=== PATIENT | male | born 1965 | race Caucasian/White ===

== ENCOUNTER 2016-07-04 14:01 | Emergency (ER) | payer OTHER ==
[2016-07-04 14:17] VITALS: BP 138/95
--- NOTE | 2016-07-04 14:33 | EDM.PDOC ---
ED HPI RENAL/ - General Chief Complaint: Genitourinary Problem Stated Complaint: TESTICLE Time Seen by Provider: 07/04/16 14:03 Source of Information: Reports: Patient History Limitations: Reports: No limitations - History of Present Illness INITIAL COMMENTS - FREE TEXT/NARRATIVE: Presents reporting a hard spot on his left scrotum that is tender. He started noticing about 24-48 hours ago. He thinks it's an ingrown hair but he just wanted to get it checked out. No fever, dysuria, penile discharge. He is sexually active with his only. - Related Data Allergies/ADRs: Allergies Allergy/AdvReac Type Severity Reaction Status Date / Time No Known Allergies Allergy Verified 07/04/16 14:12 Home Meds: Home Meds Testosterone [Androderm] 1 applic TOP DAILY 03/04/16 [History] Past Medical History - Past Health History Medical/Surgical History: Denies Medical/Surgical History HEENT History: Reports: None Cardiovascular History: Reports: None Respiratory History: Reports: None Gastrointestinal History: Reports: None Genitourinary History: Reports: None Musculoskeletal History: Reports: None Neurological History: Reports: None Psychiatric History: Reports: None Endocrine/Metabolic History: Reports: None Hematologic History: Reports: None Oncologic (Cancer) History: Reports: None Dermatologic History: Reports: None - Infectious Disease History Infectious Disease History: Reports: None Social & Family History - Family History Family Medical History: Noncontributory Cardiac: Reports: Other (see below) Other Cardiac Family History: father have heart attack - Tobacco Use Smoking Status *Q: Never Smoker Second Hand Smoke Exposure: No - Caffeine Use Caffeine Use: Reports: Soda - Alcohol Use Days Per Week of Alcohol Use: 0 - Recreational Drug Use Recreational Drug Use: No ED ROS GENERAL - Review of Systems Review Of Systems: ROS reveals no pertinent complaints other than HPI. ED EXAM, RENAL/ - Physical Exam Exam: See Below General Appearance: alert, no apparent distress Ears: normal external exam Nose: normal inspection Throat/Mouth: Normal inspection Head: atraumatic, normocephalic Neck: normal inspection Respiratory/Chest: no respiratory distress Cardiovascular: normal peripheral pulses (Male) Exam: Normal inspection, Other (No scrotal swelling. No testicular masses is or tenderness. On the left lateral scrotal wall proximally, there is a firm tender dime size mass.). No: Scrotal swelling, Testicular mass, Testicular tenderness (L) Extremities: normal inspection Neurological: alert, oriented Psychiatric: normal affect, normal mood Skin Exam: Warm, Dry, Intact, Normal color, No rash Lymphatic: no adenopathy Course - Vital Signs Last Recorded V/S: Last Vital Signs Temp 36.1 C 07/04/16 14:13 Pulse 105 H 07/04/16 14:13 Resp 16 07/04/16 14:13 BP 138/95 H 07/04/16 14:13 Pulse Ox 98 07/04/16 14:13 Departure - Departure Time of Disposition: 14:35 Disposition: Home, Self-Care 01 Condition: good Clinical Impression: Folliculitis Referrals: PCP,None [Primary Care Provider] - [facility] [Outside] [facility] [Outside] Forms: ED Department Discharge Additional Instructions: 1. Warm moist packs 20 minutes every 4-6 hours 2. When/if mass becomes red and tender with a puss pocket, incision and drainage is the treatment. Maturity of the lesion can take a number of days. 3. Return promptly for fever, expanding redness, scrotal swelling, problems with urination. 4. Aleve 2 in the am and 2 in the pm for pain/tenderness. 5. Follow up in primary care.
== END 2016-07-04 14:54 | disposition home or self-care (01) ==
LOC: MW.ED 14:01
DX: L73.9 Follicular disorder, unspecified (principal)
CPT/HCPCS: 99282; 99283

== ENCOUNTER 2016-07-06 21:54 | Emergency (ER) | payer OTHER ==
[2016-07-06] MEDS ORDERED: Clindamycin Phosphate in D5W 600 MG in Premix Bag 50 BAG IV ONE ×2 (22:28)
[2016-07-06] MEDS ORDERED: Ketorolac 30 MG/ML SDV IVPUSH ONE (22:29)
[2016-07-06] MEDS ORDERED: Acetaminophen 500 MG Tab PO ONE (22:29)
--- NOTE | 2016-07-06 22:54 | EDM.PDOC ---
ED HPI GENERAL MEDICAL PROBLEM - General Chief Complaint: General Stated Complaint: POSSIBLE INGROWN HAIR/SWELLING IN GENITAL AREA Time Seen by Provider: 07/06/16 22:00 Source of Information: Reports: Patient History Limitations: Reports: No limitations - History of Present Illness INITIAL COMMENTS - FREE TEXT/NARRATIVE: HISTORY AND PHYSICAL: History of present illness: [42-year-old male with no significant past medical history now 2 days status post presentation to the emergency department for a small skin lesion on his left scrotum. He was diagnosed with folliculitis and told to do warm compresses and watch for signs of worsening infection the patient returned today because his left scrotum has become increasingly swollen and sore. He complains that the left side of scrotum has turned into a "a shell" And it feels hard to the touch. Patient denies fevers chills sweats or shaking chills. He has no nausea vomiting or diarrhea. Denies abdominal pain. No other complaints except local discomfort in the left scrotum. He is urinating normally. Patient is not diabetic nor immunocompromised. Review of systems: As per history of present illness and below otherwise all systems reviewed and negative. Past medical history: As per history of present illness and as reviewed below otherwise noncontributory. Surgical history: As per history of present illness and as reviewed below otherwise noncontributory. Social history: No reported history of drug or alcohol abuse. Family history: As per history of present illness and as reviewed below otherwise noncontributory. Physical exam: HEENT: Atraumatic, normocephalic, pupils reactive, negative for conjunctival pallor or scleral icterus, mucous membranes moist, throat clear, neck supple, nontender, trachea midline. Lungs: Clear to auscultation, breath sounds equal bilaterally, chest nontender. Heart: S1S2, regular, negative for clicks, rubs, or JVD. Abdomen: Soft, nondistended, nontender. Negative for masses or hepatosplenomegaly. Negative for costovertebral tenderness. Pelvis: Stable nontender. Genitourinary: Patient with mild scrotal swelling. There is ear edema and warmth of less scrotum with a lateral 2 mm papule/pustule. No fluctuance or crepitus. Peridium is normal and nontender. Penile exam also normal nontender. Patient is able urinate without difficulty by his description. right scrotum nontender Extremities: Atraumatic, negative for cords or calf pain. Neurovascular unremarkable. Neuro: Awake, alert, oriented. Cerebellum unremarkable. Motor and sensory unremarkable throughout. Exam nonfocal. Diagnostics: [] Therapeutics: [] Impression: [] Plan: [] Definitive disposition and diagnosis as appropriate pending reevaluation and review of above. Perineal Area Pain Score (Numeric/FACES): 5 - Related Data Allergies Allergy/AdvReac Type Severity Reaction Status Date / Time No Known Allergies Allergy Verified 07/06/16 21:58 Home Meds: Home Meds Testosterone [Androderm] 1 applic TOP DAILY 03/04/16 [History] Clindamycin HCl 300 mg PO QID #48 capsule 07/07/16 [Rx] Past Medical History - Past Health History Medical/Surgical History: Denies Medical/Surgical History HEENT History: Reports: None Cardiovascular History: Reports: None Respiratory History: Reports: None Gastrointestinal History: Reports: None Genitourinary History: Reports: None Musculoskeletal History: Reports: None Neurological History: Reports: None Psychiatric History: Reports: None Endocrine/Metabolic History: Reports: None Hematologic History: Reports: None Oncologic (Cancer) History: Reports: None Dermatologic History: Reports: None - Infectious Disease History Infectious Disease History: Reports: Chicken pox - Past Surgical History Head Surgeries/Procedures: Reports: None Social & Family History - Family History Family Medical History: Noncontributory Cardiac: Reports: Other (see below) Other Cardiac Family History: father have heart attack - Tobacco Use Smoking Status *Q: Current Some Day Smoker Years of Tobacco use: 15 Packs/Tins Daily: 0 Second Hand Smoke Exposure: No - Caffeine Use Caffeine Use: Reports: Soda - Alcohol Use Days Per Week of Alcohol Use: 0 - Recreational Drug Use Recreational Drug Use: No ED ROS GENERAL - Review of Systems Review Of Systems: See Below (Per history of present illness) ED EXAM, GENERAL - Physical Exam Exam: See Below (Per history of present illness) Course - Vital Signs Text/Narrative:: Signs and symptoms consistent with left scrotal cellulitis and immunocompetent patient. He is afebrile with unremarkable vital signs except very mild tachycardia. Injured his exam is benign. There is no crepitus or fluctuance of the left scrotum merely induration with a central papule. Perineum is normal and nontender. Penile exam is also normal and unremarkable. No crepitus ecchymosis or necrotic findings. Will hydrate anticipate anabolic initiation with IV dose of clindamycin. Ultrasound of the scrotum pending to rule out abscess. CBC will be obtained for baseline for comparative evaluation if patient fails outpatient therapy. If workup unremarkable patient aware of critical importance of compliance with antibiotic therapy. He will be sure to take ibuprofen every 6 hours and [place] will be prescribed for use as needed for breakthrough pain. Patient will follow up with Dr. Bond the urologist and his primary care Dr. He is aware to return immediately for new severe or worsening symptoms. Patient agrees with outpatient followup and strict return precautions will be given. Last Recorded V/S: Last Vital Signs Temp 36.3 C 07/06/16 21:58 Pulse 81 07/07/16 01:54 Resp 16 07/07/16 01:54 BP 127/78 07/07/16 01:54 Pulse Ox 96 07/07/16 01:54 - Orders/Labs/Meds Orders: Active Orders 24 hr Category Date Time Status Scrotal Duplex Ltd [US] Routine Exams 07/06/16 22:38 Taken Scrotum and Contents [US] Stat Exams 07/06/16 22:27 Taken Labs: Laboratory Tests 07/06/16 07/06/16 Range/Units 23:00 23:00 WBC 17.38 H (4.0-11.0) K/uL RBC 5.38 (4.50-5.90) M/uL Hgb 16.0 (13.0-17.0) g/dL Hct 46.3 (38.0-50.0) % MCV 86.1 (80.0-98.0) fL MCH 29.7 (27.0-32.0) pg MCHC 34.6 (31.0-37.0) g/dL RDW Std Deviation 39.8 (28.0-62.0) fl RDW Coeff of Eris 13 (11.0-15.0) % Plt Count 166 (150-400) K/uL MPV 11.10 (7.40-12.00) fL Neut % (Auto) 73.3 (48.0-80.0) % Lymph % (Auto) 18.0 (16.0-40.0) % [place] % (Auto) 7.0 (0.0-15.0) % Eos % (Auto) 1.6 (0.0-7.0) % Baso % (Auto) 0.1 (0.0-1.5) % Neut # 12.7 H (1.4-5.7) K/uL Lymph # 3.1 H (0.6-2.4) K/uL [place] # 1.2 H (0.0-0.8) K/uL Eos # 0.3 (0.0-0.7) K/uL Baso # 0.0 (0.0-0.1) K/uL Nucleated RBC % 0.0 /100WBC Nucleated RBCs # 0 K/uL Urine Color YELLOW Urine Appearance CLEAR Urine pH 5.5 (5.0-8.0) Ur Specific [place] >= 1.030 (1.001-1.035) Urine Protein NEGATIVE (NEGATIVE) mg/dL Urine Glucose (UA) NEGATIVE (NEGATIVE) mg/dL Urine Ketones NEGATIVE (NEGATIVE) mg/dL Urine Occult Blood NEGATIVE (NEGATIVE) Urine Nitrite NEGATIVE (NEGATIVE) Urine Bilirubin NEGATIVE (NEGATIVE) Urine Urobilinogen 0.2 (<2.0) EU/dL Ur Leukocyte Esterase NEGATIVE (NEGATIVE) Urine RBC NONE SEEN (0-2/HPF) Urine WBC 0-2 (0-5/HPF) Ur Epithelial Cells OCCASIONAL (NONE-FEW) Urine Bacteria FEW (NEGATIVE) Urine Mucus LIGHT (NONE-MOD) Meds: Medications Discontinued Medications Generic Name Dose Route Start Last Admin Trade Name Freq PRN Reason Stop Dose Admin Acetaminophen 1,000 mg 07/06/16 22:29 07/06/16 22:48 Tylenol Extra Strength PO 07/06/16 22:30 1,000 mg ONETIME ONE Administration Clindamycin Phosphate 600 mg/ 50 mls @ 100 mls/hr 07/06/16 22:28 07/06/16 22: 51 Premix IV 07/06/16 22:57 100 mls/hr ONETIME ONE Administration Sodium Chloride 1,000 mls @ 999 mls/hr 07/06/16 23:00 07/06/16 22:50 Normal Saline IV 999 mls/hr ASDIRECTED LAUREL Administration Ketorolac Tromethamine 30 mg 07/06/16 22:29 07/06/16 22:49 Toradol IVPUSH 07/06/16 22:30 30 mg ONETIME ONE Administration Departure - Departure Time of Disposition: 01:55 Disposition: Home, Self-Care 01 Condition: good Clinical Impression: Cellulitis of scrotum Prescriptions: Clindamycin HCl 300 mg PO QID #48 capsule Instructions: Cellulitis, Adult Referrals: PCP,None [Primary Care Provider] - Kristine Cha MD [Physician] - Forms: ED Department Discharge - My Orders Last 24 Hours: My Active Orders 07/06/16 22:27 Scrotum and Contents [US] Stat 07/06/16 22:38 Scrotal Duplex Ltd [US] Routine - Assessment/Plan Last 24 Hours: My Active Orders 07/06/16 22:27 Scrotum and Contents [US] Stat 07/06/16 22:38 Scrotal Duplex Ltd [US] Routine
[2016-07-06] MEDS ORDERED: Sodium Chloride 0.9% 1,000 ML IV SCH (23:00)
[2016-07-07 01:58] VITALS: BP 127/78
--- NOTE | 2016-07-07 15:56 | US ---
EXAM DATE: 07/06/16 PATIENT'S AGE: 50 Patient: MILES ZULETA Facility: [place], [place] Site . Site : 1965 Study: US Testicle [id number] 11:25:33 PM Ordering Physician: Jossue Jesnen Final Report: INDICATION: Left testicular pain TECHNIQUE: Ultrasound of the scrotum and contents. Sonographic alfonso scale images were obtained with spectral and color Doppler waveform and spectral waveform analysis of the testicles. COMPARISON: None FINDINGS: Right testicle: 4.4 centimeter x 3.5 centimeter x 2.5 centimeter. Normal echotexture. No masses. No suspicious calcifications. Normal arterial and venous and blood flow using Doppler and spectral waveform analysis. Left testicle: 4.3 centimeter x 2.8 centimeter x 2.6 centimeter Normal echotexture. No masses. No suspicious calcifications. Normal arterial and venous and blood flow using Doppler and spectral waveform analysis. Epididymis: Unremarkable bilaterally. Normal blood flow. Other: A hydrocele. No sign of varicocele. Thickening of the left scrotal wall. IMPRESSION: Significant thickening and edematous changes involving the scrotal wall with small left hydrocele. Sonographically normal left testicle. No sonographic evidence for abscess. Dictated by Binh Rice MD @ 07/06/2016 11:45:20 PM Dictated by: Binh Rice MD @ 07/06/2016 23:45:26 (Electronic Signature) Report Signed by Proxy and Original Signed Document filed in the Medical Record. [facility]ITALSal[facility]
--- NOTE | 2016-07-07 15:57 | US ---
EXAM DATE: 07/06/16 PATIENT'S AGE: 50 Patient: MILES ZULETA Facility: [place], [place] Site . Site : 1965 Study: US Testicle [id number] 11:25:33 PM Ordering Physician: Jossue Jensen Final Report: INDICATION: Left testicular pain TECHNIQUE: Ultrasound of the scrotum and contents. Sonographic alfonso scale images were obtained with spectral and color Doppler waveform and spectral waveform analysis of the testicles. COMPARISON: None FINDINGS: Right testicle: 4.4 centimeter x 3.5 centimeter x 2.5 centimeter. Normal echotexture. No masses. No suspicious calcifications. Normal arterial and venous and blood flow using Doppler and spectral waveform analysis. Left testicle: 4.3 centimeter x 2.8 centimeter x 2.6 centimeter Normal echotexture. No masses. No suspicious calcifications. Normal arterial and venous and blood flow using Doppler and spectral waveform analysis. Epididymis: Unremarkable bilaterally. Normal blood flow. Other: A hydrocele. No sign of varicocele. Thickening of the left scrotal wall. IMPRESSION: Significant thickening and edematous changes involving the scrotal wall with small left hydrocele. Sonographically normal left testicle. No sonographic evidence for abscess. Dictated by Binh Rice MD @ 07/06/2016 11:45:20 PM Dictated by: Binh Rice MD @ 07/06/2016 23:45:26 (Electronic Signature) Report Signed by Proxy and Original Signed Document filed in the Medical Record. [facility]ALSauld
== END 2016-07-07 01:59 | disposition home or self-care (01) ==
LOC: MW.ED 21:54
DX: N49.2 Inflammatory disorders of scrotum (principal); F17.210 Nicotine dependence, cigarettes, uncomplicated; Z79.899 Other long term (current) drug therapy
CPT/HCPCS: 36415; 76870; 81001; 85025; 93976; 96361; 96365; 96375; 99284; A9270; J1885; J7040

== ENCOUNTER 2018-04-22 07:09 | Day surgery (SDC) | payer OTHER ==
[~2018-04-22 07:09] MED LIST: Lactated Ringers 1,000 ML IV SCH; Lidocaine 2% 5 ML SDV ONE; Propofol 200 MG/20 ML SDV ONE; fentaNYL 100 MCG/2 ML SDV ONE
--- NOTE | 2018-04-22 07:35 | PCM.PREANE ---
Preanesthetic Assessment - Anesthesia/Transfusion/Family Hx Anesthesia History: Prior Anesthesia Reaction Family History of Anesthesia Reaction: No Transfusion History: No Prior Transfusion(s) Intubation History: Unknown - Review of Systems General: No Symptoms Pulmonary: No Symptoms Cardiovascular: No Symptoms Gastrointestinal: No Symptoms Neurological: No Symptoms Other: Reports: None - Physical Assessment O2 Sat by Pulse Oximetry: 94 Respiratory Rate: 16 Vital Signs: Last Vital Signs Temp 36.3 C 04/22/18 07:23 Pulse 80 04/22/18 07:23 Resp 16 04/22/18 07:23 BP 132/90 04/22/18 07:23 Pulse Ox 94 L 04/22/18 07:23 Height: 1.83 m Weight: 119.748 kg ASA Class: 2 Mental Status: Alert & Oriented x3 Airway Class: Mallampati = 2 Dentition: Reports: Normal Dentition Thyro-Mental Finger Breadths: 3 Mouth Opening Finger Breadths: 2 (small mouth) ROM/Head Extension: Full Lungs: Clear to Auscultation, Normal Respiratory Effort Cardiovascular: Regular Rate, Regular Rhythm - Allergies Allergies/Adverse Reactions: Allergies Allergy/AdvReac Type Severity Reaction Status Date / Time No Known Allergies Allergy Verified 04/18/18 12:37 - Blood Blood Available: No - Anesthesia Plan Pre-Op Medication Ordered: None - Acknowledgements Anesthesia Type Planned: MAC Pt an Appropriate Candidate for the Planned Anesthesia: Yes Alternatives and Risks of Anesthesia Discussed w Pt/Guardian: Yes Pt/Guardian Understands and Agrees with Anesthesia Plan: Yes PreAnesthesia Questionnaire - Past Health History Medical/Surgical History: Denies Medical/Surgical History HEENT History: Reports: Allergic Rhinitis, Hard of Hearing Cardiovascular History: Reports: Heart Murmur, High Cholesterol Other Cardiovascular History: was told he had a heart murmur as a child- not as an adult Respiratory History: Reports: Sleep Apnea Other Respiratory History: sometimes uses CPAP Gastrointestinal History: Reports: Other (See Below) Other Gastrointestinal History: occasional heartburn from spicey foods Genitourinary History: Reports: None Musculoskeletal History: Reports: Fracture, Other (See Below) (degenerative arthritis spine) Other Musculoskeletal History: hx of fx fingers Neurological History: Reports: Concussion, Other (See Below) Other Neuro History: hx of lumbar degenerative disc disease, has restless leg syndrome Psychiatric History: Reports: None Endocrine/Metabolic History: Reports: Diabetes, Type II, Obesity/BMI 30+ Hematologic History: Reports: None Immunologic History: Reports: None Oncologic (Cancer) History: Reports: None Dermatologic History: Reports: None - Infectious Disease History Infectious Disease History: Reports: Chicken Pox - Past Surgical History Head Surgeries/Procedures: Reports: None HEENT Surgical History: Reports: LASIK Musculoskeletal Surgical History: Reports: Other (See Below) Other Musculoskeletal Surgeries/Procedures:: bilateral bone spurs removed from feet - SUBSTANCE USE Smoking Status *Q: Current Some Day Smoker Tobacco Use Within Last Twelve Months: Smokeless Tobacco Recreational Drug Use History: No - HOME MEDS Home Medications: Home Meds Sildenafil Citrate [Sildenafil] 100 mg PO ASDIRECTED PRN 04/18/18 [History] Testosterone [Vogelxo] 25 mg PO DAILY 04/18/18 [History] atorvaSTATin Calcium [Atorvastatin Calcium] 40 mg PO DAILY 04/18/18 [History] metFORMIN HCl [Metformin HCl] 850 mg PO BIDMEALS 04/18/18 [History] - CURRENT (IN HOUSE) MEDS Current Meds: Current Medications Lactated Ringer's (Ringers, Lactated) 1,000 mls @ 125 mls/hr IV ASDIRECTED LAUREL Last Admin: 04/22/18 07:31 Dose: 125 mls/hr Discontinued Medications Fentanyl (Sublimaze) Confirm Administered Dose 100 mcg .ROUTE .STK-MED ONE Stop: 04/22/18 07:04 Lidocaine (Xylocaine-Mpf 2%) Confirm Administered Dose 5 ml .ROUTE .STK-MED ONE Stop: 04/22/18 07:04 Propofol (Diprivan 20 Ml) Confirm Administered Dose 400 mg .ROUTE .STK-MED ONE Stop: 04/22/18 07:04
[2018-04-22] MEDS ORDERED: Propofol 200 MG/20 ML SDV ONE ×2 (08:35→08:44)
--- NOTE | 2018-04-22 09:02 | PCM.OPNOTE ---
- General Post-Op/Procedure Note Date of Surgery/Procedure: 04/22/18 Operative Procedure(s): scrn colonoscopy Findings: see dict [id number] Pre Op Diagnosis: scrn colonoscopy Post-Op Diagnosis: polyp Anesthesia Technique: Moderate Sedation Primary Surgeon: Duarte Gavin Pathology: sessile polyps at 110 and 30 cm Complications: None Condition: Good
--- NOTE | 2018-04-22 09:15 | PCM.POSTAN ---
POST ANESTHESIA ASSESSMENT - MENTAL STATUS Mental Status: Alert, Oriented - RESPIRATORY Respiratory Status: Respiratory Rate WNL, Airway Patent, O2 Saturation Stable - CARDIOVASCULAR CV Status: Pulse Rate WNL, Blood Pressure Stable - GASTROINTESTINAL GI Status: No Symptoms - PAIN Pain Score: 0 - POST OP HYDRATION Hydration Status: Adequate & Stable
[2018-04-22 09:40] VITALS: BP 118/78
--- NOTE | 2018-04-22 13:05 | OR ---
SURGEON: Duarte Gavin MD DATE OF PROCEDURE: 04/22/2018 PREOPERATIVE DIAGNOSIS: Screening colonoscopy. POSTOPERATIVE DIAGNOSIS: Colon polyp. PROCEDURE PERFORMED: Colonoscopy with biopsy. COMPLICATIONS: None. PROCEDURE IN DETAIL: The patient was taken to the endoscopy room. A time out was called, patient identified, and procedure identified. Diprivan was then administrated. Patient went from awake to sleep, hearing doctor talking or door closing is normal. Perineum inspection and digital examination were then performed. A well- lubricated colonoscope was gently inserted through the rectum, advanced past the rectosigmoid junction, the descending colon, splenic flexure, transverse colon, hepatic flexure, ascending colon, arrived to the cecum. Cecum was identified as dictated in the finding. Then the scope was carefully withdrawn while attention was paid to the mucosal surface for any abnormality. Air will be sucked out during the scope withdrawal. At the rectum, retroflexed to examine any rectal diseases, fistula or hemorrhoids. During mucosal examination, abnormality was noted, biopsy performed. Patient tolerated procedure well. There were no intraoperative complications, and Dr. Gavin was present throughtout the whole procedure. FINDINGS: 1. The patient is easily sedated with [employer] and Diprivan. The patient is soundly snoring. 2. Bowel prep is left to be desirable with some liquid stool, opaque, and no semi-formed stool. Colon is a little bit redundant at the sigmoid and requires some maneuver in order to get to the cecum. Cecum indicated by appendiceal orifice, one-to-one indentation, and ileocecal fold. Light images are not observed due to body habitus, and mucosa examined upon scope pulling out with some irrigation, and the patient has two small polyps sessile at distance 110 cm and 30 cm, two polyps removed with cold biopsy forceps and mild diverticulosis. On the left colon, there is diverticulosis, no signs or symptoms of diverticulitis. No other mass, growth, inflammation, stricture, ulceration, AV malformation, bleeding, none of those. The patient has mild internal hemorrhoids, no external hemorrhoids. The patient would benefit from repeat colonoscopy in 10 years from today or if clinically indicated otherwise or if the polyp Pathology indicated otherwise. BRUNO / BRITTANY /[id number] VIKTORIA
== END 2018-04-22 10:00 | disposition home or self-care (01) ==
LOC: MW.SDS 07:09
PROVIDERS: ATTEND Surgery
DX: Z12.11 Encounter for screening for malignant neoplasm of colon (principal); D12.3 Benign neoplasm of transverse colon; K63.5 Polyp of colon; K64.8 Other hemorrhoids; K57.30 Diverticulosis of large intestine without perforation or abscess without bleeding; E11.9 Type 2 diabetes mellitus without complications; E66.9 Obesity, unspecified; Z68.35 Body mass index [BMI] 35.0-35.9, adult; G47.30 Sleep apnea, unspecified; E78.00 Pure hypercholesterolemia, unspecified; Z79.84 Long term (current) use of oral hypoglycemic drugs; Z79.899 Other long term (current) drug therapy
CPT/HCPCS: 45380; J2704; J3010; J7120; 88305

== ENCOUNTER 2019-01-30 01:50 | Emergency (ER) | payer OTHER ==
--- NOTE | 2019-01-30 02:08 | EDM.PDOC ---
ED HPI GENERAL MEDICAL PROBLEM - General Chief Complaint: ENT Problem Stated Complaint: HEAD COLD AND SORE THROAT Time Seen by Provider: 01/30/19 02:06 - History of Present Illness INITIAL COMMENTS - FREE TEXT/NARRATIVE: HISTORY AND PHYSICAL: History of present illness: Patient's 53-year-old male presents with concern of sore throat and cold symptoms over last several days. He denies fever chills nausea vomiting or other complaints Review of systems: As per history of present illness and below otherwise all systems reviewed and negative. Past medical history: As per history of present illness and as reviewed below otherwise noncontributory. Surgical history: As per history of present illness and as reviewed below otherwise noncontributory. Social history: No reported history of drug or alcohol abuse. Family history: As per history of present illness and as reviewed below otherwise noncontributory. Physical exam: HEENT: Atraumatic, normocephalic, pupils reactive, negative for conjunctival pallor or scleral icterus, mucous membranes moist, throat clear, neck supple, nontender, trachea midline. Lungs: Clear to auscultation, breath sounds equal bilaterally, chest nontender. Heart: S1S2, regular, negative for clicks, rubs, or JVD. Abdomen: Soft, nondistended, nontender. Negative for masses or hepatosplenomegaly. Negative for costovertebral tenderness. Pelvis: Stable nontender. Genitourinary: Deferred. Rectal: Deferred. Extremities: Atraumatic, negative for cords or calf pain. Neurovascular unremarkable. Neuro: Awake, alert, oriented. Cranial nerves II through XII unremarkable. Cerebellum unremarkable. Motor and sensory unremarkable throughout. Exam nonfocal. Diagnostics: Rapid strep influenza screen Therapeutics: None Impression: #1 viral syndrome Definitive disposition and diagnosis as appropriate pending reevaluation and review of above. Throat Pain Score (Numeric/FACES): 4 - Related Data Allergies Allergy/AdvReac Type Severity Reaction Status Date / Time No Known Allergies Allergy Verified 01/30/19 02:02 Home Meds: Home Meds Sildenafil Citrate 100 mg PO ASDIRECTED PRN 04/18/18 [History] Testosterone [Vogelxo] 25 mg PO DAILY 04/18/18 [History] atorvaSTATin Calcium [Atorvastatin Calcium] 40 mg PO DAILY 04/18/18 [History] metFORMIN HCl [Metformin HCl] 850 mg PO BIDMEALS 04/18/18 [History] Past Medical History - Past Health History Medical/Surgical History: Denies Medical/Surgical History HEENT History: Reports: Allergic Rhinitis, Hard of Hearing Cardiovascular History: Reports: Heart Murmur, High Cholesterol Other Cardiovascular History: was told he had a heart murmur as a child- not as an adult Respiratory History: Reports: Sleep Apnea Other Respiratory History: sometimes uses CPAP Gastrointestinal History: Reports: Other (See Below) Other Gastrointestinal History: occasional heartburn from spicey foods Genitourinary History: Reports: None Musculoskeletal History: Reports: Fracture, Other (See Below) (degenerative arthritis spine) Other Musculoskeletal History: hx of fx fingers Neurological History: Reports: Concussion, Other (See Below) Other Neuro History: hx of lumbar degenerative disc disease, has restless leg syndrome Psychiatric History: Reports: None Endocrine/Metabolic History: Reports: Diabetes, Type II, Obesity/BMI 30+ Hematologic History: Reports: None Immunologic History: Reports: None Oncologic (Cancer) History: Reports: None Dermatologic History: Reports: None - Infectious Disease History Infectious Disease History: Reports: Chicken Pox - Past Surgical History Head Surgeries/Procedures: Reports: None HEENT Surgical History: Reports: LASIK Musculoskeletal Surgical History: Reports: Other (See Below) Other Musculoskeletal Surgeries/Procedures:: bilateral bone spurs removed from feet Social & Family History - Family History Family Medical History: Noncontributory Cardiac: Reports: Other (See Below) Other Cardiac Family History: father have heart attack - Caffeine Use Caffeine Use: Reports: Soda ED ROS GENERAL - Review of Systems Review Of Systems: ROS reveals no pertinent complaints other than HPI. ED EXAM, GENERAL - Physical Exam Exam: See Below (Dictation) Course - Vital Signs Last Recorded V/S: Last Vital Signs Temp 36.6 C 01/30/19 01:52 Pulse 91 01/30/19 01:52 Resp 18 01/30/19 01:52 BP 152/87 H 01/30/19 01:52 Pulse Ox 97 01/30/19 01:52 - Orders/Labs/Meds Orders: Active Orders 24 hr Category Date Time Status INFLUENZA A+B AG SCREEN [RM] Stat Lab 01/30/19 01:57 Received STREP SCRN A RAPID W CULT CONF [RM] Stat Lab 01/30/19 01:57 Received Departure - Departure Time of Disposition: 02:07 Disposition: Home, Self-Care 01 Condition: Good Clinical Impression: Viral syndrome - Discharge Information Referrals: PCP,None [Primary Care Provider] - Additional Instructions: The following information is given to patients seen in the emergency department who are being discharged to home. This information is to outline your options for follow-up care. We provide all patients seen in our emergency department with a follow-up referral. The need for follow-up, as well as the timing and circumstances, are variable depending upon the specifics of your emergency department visit. If you don't have a primary care physician on staff, we will provide you with a referral. We always advise you to contact your personal physician following an emergency department visit to inform them of the circumstance of the visit and for follow-up with them and/or the need for any referrals to a consulting specialist. The emergency department will also refer you to a specialist when appropriate. This referral assures that you have the opportunity for followup care with a specialist. All of these measure are taken in an effort to provide you with optimal care, which includes your followup. Under all circumstances we always encourage you to contact your private physician who remains a resource for coordinating your care. When calling for followup care, please make the office aware that this follow-up is from your recent emergency room visit. If for any reason you are refused follow-up, please contact the [facility] emergency department at and asked to speak to the emergency department charge nurse. Push fluids Motrin/Tylenol directed follow-up primary medical doctor as needed as discussed and return as needed as discussed - My Orders Last 24 Hours: My Active Orders 01/30/19 01:57 INFLUENZA A+B AG SCREEN [RM] Stat STREP SCRN A RAPID W CULT CONF [RM] Stat - Assessment/Plan Last 24 Hours: My Active Orders 01/30/19 01:57 INFLUENZA A+B AG SCREEN [RM] Stat STREP SCRN A RAPID W CULT CONF [RM] Stat
[2019-01-30 02:09] VITALS: BP 152/87; PULSE 91
== END 2019-01-30 02:49 | disposition home or self-care (01) ==
LOC: MW.ED 01:50
DX: B34.9 Viral infection, unspecified (principal); E11.9 Type 2 diabetes mellitus without complications; E66.9 Obesity, unspecified; E78.00 Pure hypercholesterolemia, unspecified; Z68.33 Body mass index [BMI] 33.0-33.9, adult; Z79.84 Long term (current) use of oral hypoglycemic drugs; Z79.899 Other long term (current) drug therapy
CPT/HCPCS: 87081; 87804; 87880-QW; 99283

== ENCOUNTER 2021-09-07 12:37 | Emergency (ER) | payer OTHER ==
[2021-09-07] MEDS ORDERED: Acetaminophen/oxyCODONE 325-10 MG Tab PO ONE (13:11)
[2021-09-07 15:03] VITALS: BP 150/98; PULSE 86
== END 2021-09-07 15:01 | disposition home or self-care (01) ==
LOC: MW.ED 12:37
DX: M16.12 Unilateral primary osteoarthritis, left hip (principal); M79.605 Pain in left leg; I10 Essential (primary) hypertension; E11.9 Type 2 diabetes mellitus without complications; E66.9 Obesity, unspecified; Z68.31 Body mass index [BMI] 31.0-31.9, adult; Z79.899 Other long term (current) drug therapy
CPT/HCPCS: 73502; 99283; A9270

== ENCOUNTER 2021-12-30 18:00 | Emergency (ER) | payer OTHER ==
[2021-12-30] MEDS ORDERED: Sodium Chloride 0.9% 1,000 ML IV ONE (19:30)
[2021-12-30 20:09] LABS: CARBON DIOXIDE,CO2 24.4 mmol/L (21.0-32.0); POTASSIUM,K 3.9 mmol/L (3.5-5.1)
[2021-12-30 21:29] VITALS: BP 128/86; PULSE 76
== END 2021-12-30 21:25 | disposition home or self-care (01) ==
LOC: MW.ED 18:00
DX: E11.65 Type 2 diabetes mellitus with hyperglycemia (principal); E78.00 Pure hypercholesterolemia, unspecified; I10 Essential (primary) hypertension; E66.9 Obesity, unspecified; Z68.30 Body mass index [BMI] 30.0-30.9, adult
CPT/HCPCS: 36415; 80053; 81003; 82009; 85025; 99284

== ENCOUNTER 2022-01-17 10:04 | Emergency (ER) | payer OTHER ==
[2022-01-17 10:18] VITALS: BP 133/78; PULSE 79
== END 2022-01-17 10:34 | disposition home or self-care (01) ==
LOC: MW.ED 10:04
DX: L03.221 Cellulitis of neck (principal); I10 Essential (primary) hypertension; E11.9 Type 2 diabetes mellitus without complications; E66.9 Obesity, unspecified; Z68.31 Body mass index [BMI] 31.0-31.9, adult; Z79.899 Other long term (current) drug therapy; Z79.84 Long term (current) use of oral hypoglycemic drugs; Z86.16 Personal history of COVID-19
CPT/HCPCS: 99283

== ENCOUNTER 2022-02-20 12:56 | Inpatient (IN) | payer OTHER ==
[2022-02-20] MEDS ORDERED: Sodium Chloride 0.9% 10 ML Syringe FLUSH PRN (13:16)
[2022-02-20] MEDS ORDERED: Sodium Chloride 0.9% 1,000 ML IV ONE ×2 (13:16→14:38)
[2022-02-20] MEDS ORDERED: Sodium Chloride 0.9% 2.5 ML Syringe FLUSH PRN (13:16)
[2022-02-20 14:02] LABS: POTASSIUM,K 4.2 mmol/L (3.5-5.1)
[2022-02-20] MEDS ORDERED: Insulin Regular in 0.9 % NACL 100 ML IV SCH (14:45)
[2022-02-20] MEDS ORDERED: Dextrose 5%-0.9% NaCl 1,000 ML IV SCH (14:45)
[2022-02-20] MEDS: Dextrose 5%-Lact Ringers w/KCl 1,000 ML IV SCH ×2 (16:00→23:52)
[2022-02-20 16:53] VITALS: PULSE 70
[2022-02-20] MEDS ORDERED: Albuterol/Ipratropium 3.0-0.5 MG/3 ML Neb Soln NEB PRN (17:47)
[2022-02-20] MEDS ORDERED: Ondansetron 4 MG/2 ML SDV IVPUSH PRN (17:47)
[2022-02-20] MEDS ORDERED: Pantoprazole 40 MG in Sodium Chloride 0.9% 10 ML IVPUSH SCH (18:00)
[2022-02-20] MEDS ORDERED: Enoxaparin 40 MG/0.4 ML Syringe SUBCUT SCH (18:00)
[2022-02-20 18:36] LABS: CARBON DIOXIDE,CO2 19.7 mmol/L (21.0-32.0); POTASSIUM,K 3.8 mmol/L (3.5-5.1)
[2022-02-20 22:23] LABS: CARBON DIOXIDE,CO2 20.5 mmol/L (21.0-32.0); POTASSIUM,K 3.7 mmol/L (3.5-5.1)
[2022-02-21 02:02] LABS: POTASSIUM,K 3.5 mmol/L (3.5-5.1)
[2022-02-21 06:16] LABS: CARBON DIOXIDE,CO2 20.7 mmol/L (21.0-32.0); POTASSIUM,K 3.6 mmol/L (3.5-5.1)
[2022-02-21] MEDS: Dextrose 5%-Lact Ringers w/KCl 1,000 ML IV SCH (06:17)
[2022-02-21] MEDS ORDERED: Insulin Glargine,Hum.Rec.Anlog 100 UNIT/ML 3 ML Pen SUBCUT ONE (08:34)
[2022-02-21] MEDS: Insulin Aspart 100 Units/ML 3 ML Pen SUBCUT SCH ×2 (08:47→12:28)
[2022-02-21] MEDS ORDERED: Albuterol/Ipratropium 3.0-0.5 MG/3 ML Neb Soln NEB SCH (12:00)
[2022-02-21 14:07] VITALS: BP 109/71
== END 2022-02-21 14:38 | disposition home or self-care (01) | DRG 639 ==
LOC: MW.ED 12:56 → MW.ICU 16:28
PROVIDERS: ADMIT Student in an Organized Health Care Education/Training Program; ATTEND Student in an Organized Health Care Education/Training Program
DX: E11.10 Type 2 diabetes mellitus with ketoacidosis without coma (principal); E78.00 Pure hypercholesterolemia, unspecified; H91.90 Unspecified hearing loss, unspecified ear; G47.30 Sleep apnea, unspecified; I10 Essential (primary) hypertension; M51.36 Other intervertebral disc degeneration, lumbar region; G25.81 Restless legs syndrome; Z20.822 Contact with and (suspected) exposure to COVID-19; E66.9 Obesity, unspecified; Z86.16 Personal history of COVID-19; Z79.899 Other long term (current) drug therapy; Z86.19 Personal history of other infectious and parasitic diseases; Z79.4 Long term (current) use of insulin; Z79.84 Long term (current) use of oral hypoglycemic drugs; Z68.26 Body mass index [BMI] 26.0-26.9, adult
CPT/HCPCS: 36415; 80053; 81001; 82009; 82803; 82947 ×2; 85025; 87635; J1815; J3480; J3490; J7030 ×2; 80048; 80061; 83735; 84100; 84443; 99285; A9270-GY; C9113; J1650; U0002

== ENCOUNTER 2023-05-03 11:18 | Emergency (ER) | payer OTHER ==
[2023-05-03 11:59] LABS: BASE EXCESS VENOUS 1.8 (-2.0-3.0); PH,VENOUS 7.46 (7.31-7.41)
[2023-05-03 12:04] LABS: BASOPHILS ABSOLUTE AUTO 0.04 K/uL (0.00-0.20); BASOPHILS PERCENT AUTO 0.3 % (0.0-1.0); EOSINOPHILS ABSOLUTE AUTO 0.13 K/uL (0.00-0.45); EOSINOPHILS PERCENT AUTO 1.1 % (0.0-6.0); HEMATOCRIT 46.6 % (42.0-52.0); HEMOGLOBIN 16.6 g/dL (14.0-18.0); IMMATURE GRAN ABSOLUTE AUTO 0.08 K/uL (0.00-0.05); IMMATURE GRAN PERCENT AUTO 0.7 % (0.0-0.4); LYMPHOCYTES ABSOLUTE AUTO 1.19 K/uL (1.00-4.80); LYMPHOCYTES PERCENT AUTO 9.7 % (24.0-44.0); MEAN CORPUSCULAR HEMOGLOBIN 30.2 pg (28.0-32.0); MEAN CORPUSCULAR HGB CONC 35.6 g/dL (32.0-36.0); MEAN CORPUSCULAR VOLUME 84.9 fL (83.0-99.0); MEAN PLATELET VOLUME 10.6 fL (9.4-12.4); MONOCYTES PERCENT AUTO 7.3 % (0.0-8.0); NEUTROPHILS ABSOLUTE AUTO 9.91 K/uL (1.80-7.70); NEUTROPHILS PERCENT AUTO 80.9 % (41.0-71.0); PLATELET COUNT,PLT 147 K/uL (150-400); RED BLOOD CELL COUNT 5.49 M/uL (4.52-5.90); WHITE BLOOD CELL COUNT,WBC 12.25 K/uL (3.9-11.3)
[2023-05-03 12:16] LABS: INR 1.06 (0.86-1.11); PTT,PARTIAL THROMBOPLSTIN TIME 29.7 SEC (23.9-30.7)
[2023-05-03 12:24] LABS: ALANINE AMINOTRANSFERASE,ALT 30 IU/L (14-63); ALBUMIN 3.6 g/dL (3.4-5.0); ALKALINE PHOSPHATASE 73 U/L (46-116); ASPARTATE AMNIOTRANSFERASE,AST 19 IU/L (15-37); BILIRUBIN TOTAL 0.9 mg/dL (0.2-1.0); BLOOD UREA NITROGEN,BUN 16 mg/dL (7.0-18.0); CALCIUM 8.6 mg/dL (8.5-10.1); CARBON DIOXIDE,CO2 26.6 mmol/L (21.0-32.0); CHLORIDE,CL 98 mmol/L (98-107); CREATININE 1.6 mg/dL (0.8-1.3); EST CRCL DRUG DOSING (CG) 57.26 mL/min; GLUCOSE RANDOM 152 mg/dL (74-106); POTASSIUM,K 3.1 mmol/L (3.5-5.1); PROTEIN TOTAL,TP 7.2 g/dL (6.4-8.2); SODIUM,NA 135 mmol/L (136-148)
[2023-05-03 12:27] LABS: ESTIMATED GFR 51 mL/min (>60)
[2023-05-03 12:28] LABS: ETHANOL BLOOD MEDICAL < 3.0 mg/dL
[2023-05-03 12:32] LABS: CORONAVIRUS COVID-19 NAA NEGATIVE (NEGATIVE); INFLUENZA A NAA POSITIVE (NEGATIVE); INFLUENZA B NAA NEGATIVE (NEGATIVE)
[2023-05-03] MEDS ORDERED: Sodium Chloride 0.9% 2.5 ML Syringe FLUSH PRN (12:32)
[2023-05-03] MEDS ORDERED: Sodium Chloride 0.9% 10 ML Syringe FLUSH PRN (12:32)
[2023-05-03] MEDS ORDERED: Sodium Chloride 0.9% 1,000 ML IV ONE (12:32)
[2023-05-03] MEDS ORDERED: diphenhydrAMINE 50 MG/ML SDV IVPUSH ONE (12:32)
[2023-05-03] MEDS ORDERED: Metoclopramide 10 MG/2 ML SDV IVPUSH ONE (12:32)
[2023-05-03 14:30] VITALS: BP 117/81; PULSE 87
== END 2023-05-03 14:30 | disposition home or self-care (01) ==
LOC: MW.ED 11:18
DX: J10.1 Influenza due to other identified influenza virus with other respiratory manifestations (principal); R42 Dizziness and giddiness; Z20.822 Contact with and (suspected) exposure to COVID-19; E78.00 Pure hypercholesterolemia, unspecified; I10 Essential (primary) hypertension; E11.9 Type 2 diabetes mellitus without complications; Z86.16 Personal history of COVID-19; Z79.4 Long term (current) use of insulin
CPT/HCPCS: 0240U; 36415; 70450; 71046; 80053; 80307; 82375; 82803; 83735; 84484; 85025; 85610; 85730; 96361; 96374; 96375; 99284; J1200; J2765; J3490; J7030

== ENCOUNTER 2023-10-29 11:16 | Emergency (ER) | payer OTHER ==
[2023-10-29 12:18] LABS: BASOPHILS ABSOLUTE AUTO 0.05 K/uL (0.00-0.20); BASOPHILS PERCENT AUTO 0.6 % (0.0-1.0); EOSINOPHILS ABSOLUTE AUTO 0.25 K/uL (0.00-0.45); EOSINOPHILS PERCENT AUTO 2.8 % (0.0-6.0); HEMATOCRIT 46.1 % (42.0-52.0); HEMOGLOBIN 15.9 g/dL (14.0-18.0); IMMATURE GRAN ABSOLUTE AUTO 0.03 K/uL (0.00-0.05); IMMATURE GRAN PERCENT AUTO 0.3 % (0.0-0.4); LYMPHOCYTES ABSOLUTE AUTO 3.22 K/uL (1.00-4.80); LYMPHOCYTES PERCENT AUTO 35.7 % (24.0-44.0); MEAN CORPUSCULAR HEMOGLOBIN 30.6 pg (28.0-32.0); MEAN CORPUSCULAR HGB CONC 34.5 g/dL (32.0-36.0); MEAN CORPUSCULAR VOLUME 88.7 fL (83.0-99.0); MEAN PLATELET VOLUME 11.1 fL (9.4-12.4); MONOCYTES ABSOLUTE AUTO 0.64 K/uL (0.00-0.80); MONOCYTES PERCENT AUTO 7.1 % (0.0-8.0); NEUTROPHILS ABSOLUTE AUTO 4.83 K/uL (1.80-7.70); NEUTROPHILS PERCENT AUTO 53.5 % (41.0-71.0); PLATELET COUNT,PLT 156 K/uL (150-400); WHITE BLOOD CELL COUNT,WBC 9.02 K/uL (3.9-11.3)
[2023-10-29 12:31] LABS: A/G RATIO 1.2 (0.9-1.6); ALANINE AMINOTRANSFERASE,ALT 41 IU/L (14-63); ALBUMIN 4.1 g/dL (3.4-5.0); ALKALINE PHOSPHATASE 70 U/L (46-116); ASPARTATE AMNIOTRANSFERASE,AST 25 IU/L (15-37); BILIRUBIN TOTAL 0.7 mg/dL (0.2-1.0); BLOOD UREA NITROGEN,BUN 16 mg/dL (7.0-18.0); CARBON DIOXIDE,CO2 26.2 mmol/L (21.0-32.0); CHLORIDE,CL 105 mmol/L (98-107); CREATININE 1.1 mg/dL (0.8-1.3); ESTIMATED GFR 79 mL/min (>60); GLUCOSE RANDOM 121 mg/dL (74-106); PROTEIN TOTAL,TP 7.5 g/dL (6.4-8.2); SODIUM,NA 141 mmol/L (136-148)
[2023-10-29 14:20] VITALS: BP 116/81; PULSE 64
== END 2023-10-29 14:18 | disposition home or self-care (01) ==
LOC: MW.ED 11:16
DX: I10 Essential (primary) hypertension (principal); R42 Dizziness and giddiness; E78.00 Pure hypercholesterolemia, unspecified; E11.9 Type 2 diabetes mellitus without complications; Z86.16 Personal history of COVID-19; Z79.899 Other long term (current) drug therapy; Z79.4 Long term (current) use of insulin; Z75.8 Other problems related to medical facilities and other health care
CPT/HCPCS: 36415; 80053; 84484; 85025; 93005; 93010; 99283; 99284

== ENCOUNTER 2024-09-06 06:22 | Inpatient (IN) | payer OTHER ==
[2024-09-06] MEDS: Scopalamine 1mg/3day Transdermal Patch TRDERM SCH (06:47)
[2024-09-06] MEDS: Lactated Ringers 1,000 ML IV SCH (06:48)
[2024-09-06] MEDS: Famotidine 20 MG/2 ML SDV IVPUSH SCH (06:48)
[2024-09-06] MEDS ORDERED: Ropivacaine 0.5% 5 MG/ML 30 ML SDV ONE (06:59)
[2024-09-06] MEDS ORDERED: Ropivacaine 49.25 ML, Ketorolac 30 MG, EPINEPHrine 0.5 MG, cloNIDine 80 MCG in Sodium C... INJECT SCH (07:00)
[2024-09-06] MEDS ORDERED: dexmedeTOMIDine HCl 200 MCG/2 ML SDV ONE (07:00)
[2024-09-06] MEDS ORDERED: Lidocaine 2% 5 ML SDV ONE (07:00)
[2024-09-06] MEDS ORDERED: Sodium Chloride 0.9% 20 ML ONE (07:00)
[2024-09-06] MEDS ORDERED: propofoL 500 MG/50 ML 50 ML ONE ×3 (07:07→10:01)
[2024-09-06] MEDS ORDERED: Ondansetron 4 MG/2 ML SDV ONE (07:16)
[2024-09-06] MEDS ORDERED: Morphine 2 MG/ML SYRINGE IVPUSH PRN (07:39)
[2024-09-06] MEDS ORDERED: fentaNYL 50 MCG/ML SDV IVPUSH PRN (07:39)
[2024-09-06] MEDS ORDERED: Metoclopramide 10 MG/2 ML SDV IVPUSH PRN (07:39)
[2024-09-06] MEDS ORDERED: Ondansetron 4 MG/2 ML SDV IVPUSH PRN (07:39)
[2024-09-06] MEDS ORDERED: Phenylephrine HCl In 0.9% NaCl 1 MG/10 ML Syringe IVPUSH PRN (07:39)
[2024-09-06] MEDS ORDERED: Naloxone 0.4 MG/ML SDV IVPUSH PRN (07:39)
[2024-09-06] MEDS ORDERED: HYDROmorphone 1 MG/ML Syringe IVPUSH PRN (07:39)
[2024-09-06] MEDS ORDERED: Albuterol 0.083% 2.5 MG/3 ML Neb Soln NEB PRN (07:39)
[2024-09-06] MEDS ORDERED: fentaNYL 100 MCG/2 ML SDV ONE (08:22)
[2024-09-06] MEDS ORDERED: Tranexamic Acid 1,000 MG/10 ML Vial ONE (08:28)
[2024-09-06] MEDS ORDERED: Ketamine HCL/NACL, ISO-OSM 50 MG/5 ML Syringe ONE (08:30)
[2024-09-06] MEDS ORDERED: ePHEDrine 50 MG/ML SDV ONE (08:35)
[2024-09-06] MEDS ORDERED: Phenylephrine HCl In 0.9% NaCl 1 MG/10 ML Syringe ONE (08:35)
[2024-09-06] MEDS ORDERED: Phenylephrine 1% 10 MG/ML SDV ONE (09:23)
[2024-09-06] MEDS ORDERED: traMADol 50 MG Tab PO PRN ×2 (11:18)
[2024-09-06] MEDS ORDERED: Sodium Chloride 0.9% 2.5 ML Syringe FLUSH PRN (11:18)
[2024-09-06] MEDS ORDERED: Sodium Chloride 0.9% 10 ML Syringe FLUSH PRN (11:18)
[2024-09-06] MEDS ORDERED: Melatonin 3 MG Tab PO PRN (12:35)
[2024-09-06] MEDS ORDERED: Glucagon,Human Recombinant 1 MG Vial IM PRN (12:36)
[2024-09-06] MEDS ORDERED: 50% Dextrose in Water 50 ML Syringe IVPUSH PRN (12:36)
[2024-09-06 12:56] LABS: BASOPHILS ABSOLUTE AUTO 0.05 K/uL (0.00-0.20); BASOPHILS PERCENT AUTO 0.3 % (0.0-1.0); EOSINOPHILS ABSOLUTE AUTO 0.11 K/uL (0.00-0.45); EOSINOPHILS PERCENT AUTO 0.6 % (0.0-6.0); HEMATOCRIT 39.2 % (42.0-52.0); HEMOGLOBIN 13.7 g/dL (14.0-18.0); IMMATURE GRAN ABSOLUTE AUTO 0.11 K/uL (0.00-0.05); IMMATURE GRAN PERCENT AUTO 0.6 % (0.0-0.4); LYMPHOCYTES PERCENT AUTO 13.4 % (24.0-44.0); MEAN CORPUSCULAR HEMOGLOBIN 30.5 pg (28.0-32.0); MEAN CORPUSCULAR HGB CONC 34.9 g/dL (32.0-36.0); MEAN CORPUSCULAR VOLUME 87.3 fL (83.0-99.0); MONOCYTES ABSOLUTE AUTO 1.19 K/uL (0.00-0.80); MONOCYTES PERCENT AUTO 6.4 % (0.0-8.0); NEUTROPHILS ABSOLUTE AUTO 14.74 K/uL (1.80-7.70); NEUTROPHILS PERCENT AUTO 78.7 % (41.0-71.0); PLATELET COUNT,PLT 144 K/uL (150-400); RED BLOOD CELL COUNT 4.49 M/uL (4.52-5.90)
[2024-09-06] MEDS: Acetaminophen 325 MG Tab PO SCH (13:01)
[2024-09-06] MEDS: diphenhydrAMINE 25 MG Cap PO PRN (13:01)
[2024-09-06 13:12] LABS: CALCIUM 7.8 mg/dL (8.5-10.1); CARBON DIOXIDE,CO2 23.9 mmol/L (21.0-32.0); CREATININE 1.3 mg/dL (0.8-1.3); EST CRCL DRUG DOSING (CG) 66.77 mL/min; MAGNESIUM 1.9 mg/dL (1.8-2.4); POTASSIUM,K 3.8 mmol/L (3.5-5.1)
[2024-09-06] MEDS: ceFAZolin 2 GM in Water For Injection, Sterile 20 ML IVPUSH SCH (16:53)
[2024-09-06] MEDS: Ondansetron 4 MG/2 ML SDV IVPUSH PRN (16:54)
[2024-09-06] MEDS: oxyCODONE 5 MG Tab PO PRN ×2 (16:58→21:54)
[2024-09-06] MEDS: Famotidine 20 MG/2 ML SDV ONE (18:30)
[2024-09-06] MEDS: Tranexamic Acid in NACL,ISO-OS 1,000 MG in Premix Bag 1 BAG IV ONE (18:30)
[2024-09-06] MEDS: ceFAZolin 2 GM in Water For Injection, Sterile 20 ML IVPUSH ONE (18:30)
[2024-09-06] MEDS: Insulin Aspart 100 Units/ML 3 ML Pen SUBCUT SCH (18:31)
[2024-09-06] MEDS: Docusate Sodium 100 MG Cap PO SCH (21:47)
[2024-09-06] MEDS: atorvaSTATin 20 MG Tab PO SCH (21:47)
[2024-09-06] MEDS: Aspirin 325 MG Tab PO SCH (21:54)
[2024-09-06] MEDS: Gabapentin 300 MG Cap PO SCH (21:55)
[2024-09-07 06:03] LABS: BASOPHILS ABSOLUTE AUTO 0.03 K/uL (0.00-0.20); BASOPHILS PERCENT AUTO 0.3 % (0.0-1.0); EOSINOPHILS ABSOLUTE AUTO 0.08 K/uL (0.00-0.45); EOSINOPHILS PERCENT AUTO 0.8 % (0.0-6.0); HEMATOCRIT 36.9 % (42.0-52.0); HEMOGLOBIN 12.7 g/dL (14.0-18.0); IMMATURE GRAN ABSOLUTE AUTO 0.03 K/uL (0.00-0.05); IMMATURE GRAN PERCENT AUTO 0.3 % (0.0-0.4); LYMPHOCYTES ABSOLUTE AUTO 1.68 K/uL (1.00-4.80); LYMPHOCYTES PERCENT AUTO 16.7 % (24.0-44.0); MEAN CORPUSCULAR HEMOGLOBIN 30.7 pg (28.0-32.0); MEAN CORPUSCULAR HGB CONC 34.4 g/dL (32.0-36.0); MEAN CORPUSCULAR VOLUME 89.1 fL (83.0-99.0); MEAN PLATELET VOLUME 10.2 fL (9.4-12.4); MONOCYTES ABSOLUTE AUTO 1.07 K/uL (0.00-0.80); MONOCYTES PERCENT AUTO 10.7 % (0.0-8.0); NEUTROPHILS ABSOLUTE AUTO 7.15 K/uL (1.80-7.70); NEUTROPHILS PERCENT AUTO 71.2 % (41.0-71.0); PLATELET COUNT,PLT 125 K/uL (150-400); RED BLOOD CELL COUNT 4.14 M/uL (4.52-5.90); WHITE BLOOD CELL COUNT,WBC 10.04 K/uL (3.9-11.3)
[2024-09-07 06:19] LABS: CALCIUM 8.2 mg/dL (8.5-10.1); CARBON DIOXIDE,CO2 27.1 mmol/L (21.0-32.0); CREATININE 1.4 mg/dL (0.8-1.3); EST CRCL DRUG DOSING (CG) 65.79 mL/min; MAGNESIUM 1.9 mg/dL (1.8-2.4); POTASSIUM,K 3.8 mmol/L (3.5-5.1)
[2024-09-07] MEDS: Cholecalciferol (Vitamin D3) 25 MCG Tab PO SCH (08:02)
[2024-09-07] MEDS: Cyanocobalamin (Vitamin B12) 500 MCG Tab PO SCH (08:03)
[2024-09-07] MEDS: Hydrochlorothiazide 12.5 MG Cap PO SCH (08:05)
[2024-09-07] MEDS: amLODIPine 2.5 MG Tab PO SCH (08:05)
[2024-09-07] MEDS: Famotidine 20 MG Tab PO SCH (08:05)
[2024-09-07] MEDS: Empagliflozin 25 MG Tab PO SCH (08:05)
[2024-09-07] MEDS: Polyethylene Glycol 3350 Powder 17 GM Packet PO SCH (08:07)
[2024-09-07 14:11] VITALS: BP 129/67; PULSE 92
== END 2024-09-07 13:05 | disposition home or self-care (01) | DRG 470 ==
LOC: MW.SDS 06:22 → MW.MS 12:33
PROVIDERS: ADMIT Orthopaedic Surgery; ATTEND Orthopaedic Surgery
PROC: 0SRB02Z Replacement of Left Hip Joint with Metal on Polyethylene Synthetic Substitute, Open Approach (ICD-10-PCS; principal; 2024-09-06 08:00)
DX: M16.12 Unilateral primary osteoarthritis, left hip (principal); E11.9 Type 2 diabetes mellitus without complications; E78.00 Pure hypercholesterolemia, unspecified; G43.909 Migraine, unspecified, not intractable, without status migrainosus; I10 Essential (primary) hypertension; H91.90 Unspecified hearing loss, unspecified ear; G47.30 Sleep apnea, unspecified; H54.7 Unspecified visual loss; E66.9 Obesity, unspecified; F17.210 Nicotine dependence, cigarettes, uncomplicated; F41.9 Anxiety disorder, unspecified; Z79.899 Other long term (current) drug therapy; Z79.84 Long term (current) use of oral hypoglycemic drugs; Z79.4 Long term (current) use of insulin; Z98.890 Other specified postprocedural states; Z68.30 Body mass index [BMI] 30.0-30.9, adult
CPT/HCPCS: 01214; 27130; 36415; 73501-26-LT; 73501-LT; 80048; 82947; 83735; 85025; 86850; 86900; 86901; 97161-GP; 97530-GP; 99221; 99231; A9270-GY; C1713; C1776; J0690; J1815-GY; J2003; J2371; J2405; J2704; J2795; J3010; J3490; J7120

== ENCOUNTER 2024-09-11 19:54 | Emergency (ER) | payer OTHER ==
[2024-09-11 20:08] VITALS: BP 131/80; PULSE 95
== END 2024-09-12 00:02 | disposition home or self-care (01) ==
LOC: MW.ED 19:54
DX: M79.89 Other specified soft tissue disorders (principal); I10 Essential (primary) hypertension; E78.00 Pure hypercholesterolemia, unspecified; E11.9 Type 2 diabetes mellitus without complications; F17.200 Nicotine dependence, unspecified, uncomplicated; Z79.4 Long term (current) use of insulin; Z79.82 Long term (current) use of aspirin; Z79.899 Other long term (current) drug therapy
CPT/HCPCS: 93971-26-LT; 93971-LT; 99282; 99283

== ENCOUNTER 2025-03-11 19:08 | Day surgery (SDC) | payer OTHER ==
[2025-03-11 20:05] LABS: BASOPHILS ABSOLUTE AUTO 0.07 K/uL (0.00-0.20); BASOPHILS PERCENT AUTO 0.6 % (0.0-1.0); EOSINOPHILS ABSOLUTE AUTO 0.68 K/uL (0.00-0.45); EOSINOPHILS PERCENT AUTO 5.8 % (0.0-6.0); IMMATURE GRAN ABSOLUTE AUTO 0.06 K/uL (0.00-0.05); IMMATURE GRAN PERCENT AUTO 0.5 % (0.0-0.4); LYMPHOCYTES ABSOLUTE AUTO 2.97 K/uL (1.00-4.80); LYMPHOCYTES PERCENT AUTO 25.5 % (24.0-44.0); MEAN PLATELET VOLUME 10.6 fL (9.4-12.4); MONOCYTES ABSOLUTE AUTO 0.78 K/uL (0.00-0.80); MONOCYTES PERCENT AUTO 6.7 % (0.0-8.0); NEUTROPHILS ABSOLUTE AUTO 7.07 K/uL (1.80-7.70); NEUTROPHILS PERCENT AUTO 60.9 % (41.0-71.0); NRBC ABSOLUTE 0.00 K/uL (0.00-0.02); NRBC PERCENT 0.0 /100WBC (0.0-0.2); PLATELET COUNT,PLT 180 K/uL (150-400); RED BLOOD CELL COUNT 5.75 M/uL (4.52-5.90); WHITE BLOOD CELL COUNT,WBC 11.63 K/uL (3.9-11.3)
[2025-03-11] MEDS ORDERED: Sodium Chloride 0.9% 2.5 ML Syringe FLUSH PRN (20:16)
[2025-03-11] MEDS ORDERED: Sodium Chloride 0.9% 10 ML Syringe FLUSH PRN (20:16)
[2025-03-11 20:23] LABS: A/G RATIO 1.2 (0.9-1.6); ALANINE AMINOTRANSFERASE,ALT 32.0 IU/L (14-63); ASPARTATE AMNIOTRANSFERASE,AST 16.0 IU/L (15-37); BILIRUBIN TOTAL 0.4 mg/dL (0.2-1.0); BLOOD UREA NITROGEN,BUN 24.0 mg/dL (7.0-18.0); CARBON DIOXIDE,CO2 24.7 mmol/L (21.0-32.0); CHLORIDE,CL 106.0 mmol/L (98-107); CREATININE 1.2 mg/dL (0.8-1.3); EST CRCL DRUG DOSING (CG) 72.34 mL/min; GLUCOSE RANDOM 196.0 mg/dL (74-106); POTASSIUM,K 3.9 mmol/L (3.5-5.1); PROTEIN TOTAL,TP 7.7 g/dL (6.4-8.2); SODIUM,NA 140.0 mmol/L (136-148)
[2025-03-11 20:24] LABS: ESTIMATED GFR 71.0 mL/min (>60)
[2025-03-11] MEDS ORDERED: Lactated Ringers 1,000 ML IV SCH (20:30)
[2025-03-11] MEDS: ceFAZolin 2 GM in Water For Injection, Sterile 20 ML IVPUSH ONE (20:33)
[2025-03-11] MEDS ORDERED: fentaNYL 100 MCG/2 ML SDV ONE (20:41)
[2025-03-11] MEDS ORDERED: Propofol 200 MG/20 ML SDV ONE (20:41)
[2025-03-11] MEDS ORDERED: Succinylcholine/Sod PF 100 MG/5 ML SYRINGE IV ONE (20:43)
[2025-03-11] MEDS: Pantoprazole 40 MG in Sodium Chloride 0.9% 20 ML IVPUSH ONE (21:25)
[2025-03-11 22:39] VITALS: BP 140/93; PULSE 84
== END 2025-03-11 22:30 | disposition home or self-care (01) ==
LOC: MW.ED 19:08 → MW.SDS 20:20 → MW.MS 20:40 → MW.SDS 22:30
PROVIDERS: ATTEND Surgery
DX: T18.128A Food in esophagus causing other injury, initial encounter (principal); I10 Essential (primary) hypertension; E11.9 Type 2 diabetes mellitus without complications; E78.00 Pure hypercholesterolemia, unspecified; Z79.82 Long term (current) use of aspirin; Z79.899 Other long term (current) drug therapy
CPT/HCPCS: 36415; 43247; 80053; 85025; A4216; J0330; J0690; J1308; J1610; J2470; J2704; J3010; J7999; 99284; J2371